=== PATIENT | male | born 1965 | race Caucasian/White ===

== ENCOUNTER 2020-03-19 09:39 | Outpatient (REF) | payer OTHER, SELFPAY | END 2020-03-19 09:40 | disposition home or self-care (01) | LOC: HO.LAB 09:39 | PROVIDERS: Visit Provider Internal Medicine | DX: Z20.828 Contact with and (suspected) exposure to other viral communicable diseases (principal) | CPT/HCPCS: 87635 ==

== ENCOUNTER → 2020-09-23 13:22 | Outpatient (BNVA) | payer OTHER, SELFPAY | PROVIDERS: PCP Internal Medicine; Visit Provider Physician Assistant | DX: S61.311D Laceration without foreign body of left index finger with damage to nail, subsequent encounter (principal); X58.XXXD Exposure to other specified factors, subsequent encounter | CPT/HCPCS: 12001; 90714; 90715; 99203 ==

== ENCOUNTER → 2020-09-25 10:57 | Outpatient (BNVA) | payer OTHER, SELFPAY | PROVIDERS: PCP Internal Medicine; Visit Provider Physician Assistant | DX: S61.211D Laceration without foreign body of left index finger without damage to nail, subsequent encounter (principal); X58.XXXD Exposure to other specified factors, subsequent encounter | CPT/HCPCS: 87071; 87205; 99213 ==

== ENCOUNTER → 2020-09-27 10:03 | Outpatient (BNVA) | payer OTHER, SELFPAY | PROVIDERS: PCP Internal Medicine; Visit Provider Physician Assistant Medical | DX: S61.211D Laceration without foreign body of left index finger without damage to nail, subsequent encounter (principal); X58.XXXD Exposure to other specified factors, subsequent encounter | CPT/HCPCS: 99213 ==

== ENCOUNTER → 2020-10-02 09:55 | Outpatient (BNVA) | payer OTHER, SELFPAY | PROVIDERS: PCP Internal Medicine; Visit Provider Physician Assistant Medical | DX: S61.211D Laceration without foreign body of left index finger without damage to nail, subsequent encounter (principal); X58.XXXD Exposure to other specified factors, subsequent encounter; L03.012 Cellulitis of left finger | CPT/HCPCS: 99213 ==

== ENCOUNTER → 2020-10-10 07:53 | Outpatient (BNVA) | payer OTHER, SELFPAY | PROVIDERS: PCP Internal Medicine; Visit Provider Physician Assistant Medical | DX: S61.221D Laceration with foreign body of left index finger without damage to nail, subsequent encounter (principal); X58.XXXD Exposure to other specified factors, subsequent encounter | CPT/HCPCS: 99213 ==

== ENCOUNTER → 2020-11-14 09:19 | Outpatient (BNVA) | payer OTHER, SELFPAY | PROVIDERS: PCP Internal Medicine; Visit Provider Internal Medicine | DX: S61.311A Laceration without foreign body of left index finger with damage to nail, initial encounter (principal); S62.601A Fracture of unspecified phalanx of left index finger, initial encounter for closed fracture; W31.89XA Contact with other specified machinery, initial encounter | CPT/HCPCS: 73140; 99202 ==

== ENCOUNTER → 2020-11-18 09:11 | Outpatient (BNVA) | payer OTHER, SELFPAY | PROVIDERS: PCP Internal Medicine; Visit Provider Internal Medicine | DX: S61.311A Laceration without foreign body of left index finger with damage to nail, initial encounter (principal); S62.601A Fracture of unspecified phalanx of left index finger, initial encounter for closed fracture; X58.XXXA Exposure to other specified factors, initial encounter | CPT/HCPCS: 99213 ==

== ENCOUNTER → 2020-11-28 12:51 | Outpatient (BNVA) | payer OTHER, SELFPAY | PROVIDERS: PCP Internal Medicine; Visit Provider Internal Medicine | DX: S62.601D Fracture of unspecified phalanx of left index finger, subsequent encounter for fracture with routine healing (principal); X58.XXXD Exposure to other specified factors, subsequent encounter | CPT/HCPCS: 99213 ==

== ENCOUNTER → 2020-12-31 13:18 | Outpatient (BNVA) | payer OTHER, SELFPAY | PROVIDERS: PCP Internal Medicine; Visit Provider Internal Medicine | DX: S62.631D Displaced fracture of distal phalanx of left index finger, subsequent encounter for fracture with routine healing (principal); S64.490D Injury of digital nerve of right index finger, subsequent encounter; W23.0XXD Caught, crushed, jammed, or pinched between moving objects, subsequent encounter | CPT/HCPCS: 99213 ==

== ENCOUNTER → 2021-02-25 13:04 | Outpatient (BNVA) | payer OTHER, SELFPAY | PROVIDERS: PCP Internal Medicine; Visit Provider Internal Medicine | DX: S67.191D Crushing injury of left index finger, subsequent encounter (principal); X58.XXXD Exposure to other specified factors, subsequent encounter | CPT/HCPCS: 99213 ==

== ENCOUNTER → 2023-07-29 11:12 | Outpatient (BNVA) | payer OTHER, SELFPAY | PROVIDERS: PCP Internal Medicine; Visit Provider Physician Assistant | DX: S76.111A Strain of right quadriceps muscle, fascia and tendon, initial encounter (principal); W18.43XA Slipping, tripping and stumbling without falling due to stepping from one level to another, initial encounter | CPT/HCPCS: 73564; 99204 ==

== ENCOUNTER → 2023-08-05 09:33 | Outpatient (BNVA) | payer OTHER, SELFPAY | PROVIDERS: PCP Internal Medicine; Visit Provider Physician Assistant | DX: M25.461 Effusion, right knee (principal) | CPT/HCPCS: 99214 ==

== ENCOUNTER → 2023-08-25 09:56 | Outpatient (BNVA) | payer OTHER, SELFPAY | PROVIDERS: PCP Internal Medicine; Visit Provider Physician Assistant | DX: S83.91XD Sprain of unspecified site of right knee, subsequent encounter (principal); W18.43XD Slipping, tripping and stumbling without falling due to stepping from one level to another, subsequent encounter | CPT/HCPCS: 99213 ==

== ENCOUNTER → 2023-09-15 09:00 | Outpatient (BNVA) | payer OTHER, SELFPAY | PROVIDERS: PCP Internal Medicine; Visit Provider Physician Assistant | DX: M25.561 Pain in right knee (principal) | CPT/HCPCS: 99213 ==

== ENCOUNTER 2023-10-05 19:07 | Outpatient (REF) | payer OTHER, SELFPAY | END 2023-10-05 19:08 | disposition home or self-care (01) | LOC: HO.MRI 19:07 | PROVIDERS: PCP Internal Medicine; Visit Provider Internal Medicine | DX: Z13.89 Encounter for screening for other disorder (principal) ==

== ENCOUNTER 2023-10-07 10:48 | Outpatient (REF) | payer OTHER, SELFPAY ==
--- NOTE | ~2023-10-07 | MR_ITS ---
EXAMINATION: MR KNEE WITHOUT CONTRAST, RIGHT CLINICAL INFORMATION: Right knee pain. Pain superior to the patella. Injury on 07/25/2023. Suprapatellar effusion. Weakness. COMPARISON: Right knee radiographs dated 07/29/2023. Right knee MRI dated 12/01/2013. TECHNIQUE: MRI of the knee without contrast was performed using routine sequences on a high-field scanner. FINDINGS: MENISCI: Medial Meniscus: Significant interval attenuation and irregularity of the medially extruded meniscal body, increased when compared to the prior examination. Oblique tibial articular surface tearing extending through the posterior body and posterior horn, slightly more subtle when compared to the prior examination. The previously seen parameniscal cyst is no longer identified. Lateral Meniscus: Minimal inner margin fraying of the meniscal body, new when compared to the prior examination. LIGAMENTS: Cruciate: Intact Collateral: Intact EXTENSOR MECHANISM: Intact quadriceps and patellar tendons. Normal patellofemoral alignment. ARTICULAR CARTILAGE/BONE: Patellofemoral Compartment: Patellar median ridge articular cartilage fissuring with medial patellar facet signal heterogeneity. Central trochlear signal heterogeneity and partial-thickness loss. Tiny marginal osteophytes. Findings are slightly progressed. Medial Compartment: Diffuse articular cartilage thinning with areas of near full-thickness loss and small marginal osteophytes, slightly progressed. Lateral Compartment: Mild articular cartilage signal heterogeneity with tiny marginal osteophytes, new when compared to the prior examination. JOINT FLUID AND BURSAE: Small joint effusion and trace Garcia's cyst. MR/MR knee RT wo con IMPRESSION: 1. Significant attenuation and irregularity of the medial meniscal body, increased when compared to the prior examination. Oblique tibial articular surface tearing extending through the posterior body and posterior horn, slightly more subtle when compared to the prior examination. The previously seen parameniscal cyst is no longer identified. 2. Minimal inner margin fraying of the lateral meniscal body, new when compared to the prior examination. 3. Mild tricompartmental osteoarthritis, slightly progressed when compared to the prior examination. Small joint effusion and trace Garcia's cyst.
== END 2023-10-07 10:49 | disposition home or self-care (01) ==
LOC: HO.MRI 10:48
PROVIDERS: PCP Internal Medicine; Visit Provider Internal Medicine
DX: M25.461 Effusion, right knee (principal); S83.91XD Sprain of unspecified site of right knee, subsequent encounter
CPT/HCPCS: 73721

== ENCOUNTER 2024-02-03 09:42 | Outpatient (REF) | payer BC, SELFPAY ==
--- NOTE | ~2024-02-03 | FL_ITS ---
EXAMINATION: XR FLUOROSCOPY UPPER GI WITH AIR CLINICAL INFORMATION: Dysphagia COMPARISON: None TECHNIQUE: Fluoroscopic air contrast upper GI examination was performed utilizing standard techniques with thin and thick barium and effervescent granules. Numerous spot images were obtained. FINDINGS: Lateral cine images of the oropharynx and hypopharynx demonstrate normal swallow mechanism with normal epiglottic inversion and soft palate elevation. No tracheal penetration, glottic or subglottic aspiration identified. No nasopharyngeal reflux present. A tiny Zenker's diverticulum is present. There is mild to moderate cricopharyngeal achalasia is present. Dual and single contrast images of the esophagus demonstrate a normal caliber and contour. There is felinization of the mid and distal esophageal mucosa. and mucosal pattern. No evidence of stricture, mass, or ulcerations identified. Esophageal peristalsis was normal. A very small type I hiatal hernia is present. No significant gastroesophageal reflux was seen during the course of the examination and on reflux views. Dual contrast and single contrast images of the stomach demonstrated a normal contour. The areae gastricae have a prominent appearance, suggestive of gastritis. There are multiple tiny foci of contrast pooling in the fundus of the stomach that likely represents small superficial apthous ulcers. No masses are seen. Contrast freely passed into the gastric antrum and duodenal bulb without delay. Single and air-contrast images of the duodenal bulb demonstrate no abnormality. The duodenal sweep has a normal appearance, course, and mucosal fold appearance. The imaged proximal jejunum has a normal fold pattern and caliber. FLUOROSCOPY TIME: 3 minutes 18 seconds Number of Spot Images: 9 Number of Cine: 12 DOSE AREA PRODUCT: 2264 uGy-m2 (microgray-meter squared) FL/FL barium swallow with air IMPRESSION: 1. Tiny Zenker's diverticulum. 2. Mild to moderate cricopharyngeal achalasia. 3. Felinization of the mid and distal esophageal mucosa. This is a benign finding that is typically associated with chronic gastroesophageal reflux. Although reflux was not seen during this examination, suspect at least moderate reflux. 4. Thickened appearance of the areae gastrica. In addition there are multiple tiny foci of contrast pooling in the fundus of the stomach. These findings are suggestive of erosive gastritis. Recommend correlation with EGD. This procedure was performed by Dameon Jacob PA-C, and supervised by Dr. Wright Electronically signed by: Olivier Wright MD 02/04/2024 04:25 PM EDT
== END 2024-02-03 09:43 | disposition home or self-care (01) ==
LOC: HO.XRAY 09:42
PROVIDERS: PCP Internal Medicine; Visit Provider Internal Medicine
DX: R13.14 Dysphagia, pharyngoesophageal phase (principal)
CPT/HCPCS: 74221

== ENCOUNTER → 2024-02-03 09:47 | Outpatient (BNV) | payer BC, SELFPAY | PROVIDERS: PCP Internal Medicine; Visit Provider Radiology Diagnostic Radiology | DX: R13.10 Dysphagia, unspecified (principal) | CPT/HCPCS: 74246 ==

== ENCOUNTER 2024-02-24 13:17 | Day surgery (SDC) | payer BC, SELFPAY ==
--- NOTE | 2024-02-22 14:49 | P.CONAN_ITS ---
Documented by User: Denise Soria NP 02/22/24 14:50 HPI - Anesthesia Eval Consult details Narrative: 59yo M for Upper Endoscopy with Balloon Dilitation [facility] Past Medical History Medical History Stroke Mitral valve prolapse Social History Social History Are you a primary healthcare technician to a significant other at home: No Do you presently have visiting nurse or other home services: No Patient Tobacco Use Status: Never used Tobacco Use of substances other than those prescribed or required for medical reasons: No Are you DNR?: No Advance Directives: No Advance Directives Information Provided: Yes Meds Allergies Allergy/AdvReac Type Severity Reaction Status Date / Time aspirin [Aspirin] Allergy Severe ANAPHYLAXIS Unverified 02/08/20 14:44 Home Medications ?Medication ?Instructions ?Recorded ?Confirmed ?Last Taken ?Type omeprazole 20 mg tablet,delayed 20 mg PO QAM 02/23/24 02/24/24 Unknown History release Assessment and Plan Assessment Anesthesia Assessment: Chart Reviewed Documented by User: Roma Evangelista MD 02/24/24 14:19 [facility] Past Medical History Medical History Stroke Mitral valve prolapse Surgical History History of Problems with Anesthesia: No Social History Social History Are you a primary healthcare technician to a significant other at home: No Do you presently have visiting nurse or other home services: No Patient Tobacco Use Status: Never used Tobacco Use of substances other than those prescribed or required for medical reasons: No Are you DNR?: No Advance Directives: No Advance Directives Information Provided: Yes Meds Allergies Allergy/AdvReac Type Severity Reaction Status Date / Time aspirin [Aspirin] Allergy Severe ANAPHYLAXIS Unverified 02/08/20 14:44 Home Medications ?Medication ?Instructions ?Recorded ?Confirmed ?Last Taken ?Type omeprazole 20 mg tablet,delayed 20 mg PO QAM 02/23/24 02/24/24 Unknown History release Exam Airway Mallampati Class: III TM Dist: >3cm Neck ROM: Full Loose/Missing/Broken Teeth: No Heart: RRR Lungs: CTA Assessment and Plan Assessment Anesthesia Assessment: Anesthesia Plan Discussed Final Anesthetic Review History of Problems with Anesthesia: No NPO: Yes ASA Class: III Final Preanesthetic Review: Meds/Allgs Chart Reviewed, Consent Obtained/Reviewed and Anes Risks/Benef Reviewed Patient Risk: Intermediate Procedure Risk: Intermediate Anesthetic Plan Anesthetic Plan: MAC: Disposition: Standard PACU
[2024-02-24 13:33] VITALS: BMI 33.9
[2024-02-24 13:40] VITALS: BP 117/91; PULSE 74; RESP 16; TEMP 36.7; O2SAT 95
[2024-02-24 15:09] VITALS: BP 132/85; PULSE 96; RESP 12; TEMP 36.1; O2SAT 94
--- NOTE | 2024-02-24 15:11 | P.BOP_ITS ---
Brief Operative Note Date of Service: 02/24/24 Pre-op diagnosis: Dysphagia, GERD, Hx of EoE Post-op diagnosis: other (Hiatal hernia, Distal esophageal stricture) Procedure: EGD with biopsies, and balloon dilation with an 18mm to 19mm to 20mm balloon Surgeon: Vitor Peters MD Anesthesia: MAC Was an Blood Bank Supervisor used for this Procedure?: No Estimated blood loss (mL): 2.0 Pathology: other (A. EG Junction at 38cm B. Esophagus 20-25cm) Condition: stable Disposition: PACU
[2024-02-24 15:24] VITALS: BP 141/89; PULSE 82; RESP 16; O2SAT 98
[2024-02-24 15:39] VITALS: BP 124/79; PULSE 78; RESP 18; TEMP 36.1; O2SAT 98
--- NOTE | 2024-02-25 10:23 | OP_ITS ---
DATE OF SERVICE: 02/24/2024 SURGEON: Vitor Peters MD INDICATIONS: The patient presents for evaluation of gastroesophageal reflux, dysphagia, and history of eosinophilic esophagitis. Full consent has been obtained from him for this, including risks of bleeding and perforation. PREOPERATIVE DIAGNOSIS: POSTOPERATIVE DIAGNOSIS: PROCEDURE PERFORMED: Esophagogastroduodenoscopy with balloon dilation of gastroesophageal junction, and biopsies. ESTIMATED BLOOD LOSS: COMPLICATIONS: ANESTHESIA: Monitored anesthesia care. ASSISTANTS: SPECIMENS: PREOPERATIVE DIAGNOSES: Dysphagia, gastroesophageal reflux, history of eosinophilic esophagitis. POSTOPERATIVE DIAGNOSES: Dysphagia, gastroesophageal reflux, history of eosinophilic esophagitis, hiatal hernia, distal esophageal stricture, subtle proximal esophageal rings, status post balloon dilation of gastroesophageal junction, small hiatal hernia. DESCRIPTION OF PROCEDURE: The patient was placed in the left lateral decubitus position. The Olympus video gastroscope was passed in the posterior oropharynx and upper esophagus under direct vision. The scope was passed slowly into the distal esophagus. The gastroesophageal junction appeared at 38 cm. This area appeared notable for what appeared to be a circumferential fibrotic ring or stricture, but without any significant obstruction as the scope easily passed this. There was no ulceration or mass. There was no obvious evidence of Callaway esophagus. The scope entered the stomach and there was a small hiatal hernia. The scope was advanced to pylorus and the duodenum was cannulated to the descending portion. The duodenum including the bulb appeared normal without mass or ulceration. The scope was withdrawn back to the stomach. The gastric antrum and body appeared normal with good peristalsis. The scope was retroflexed, visualizing the proximal stomach carefully, which appeared normal, without any sign of mass or ulceration. The scope was straightened and withdrawn back to the esophagus. I did use a [employer] incremental balloon to dilate the gastroesophageal junction from 18 mm to 19 mm to 20 mm at the recommended pressure for between 30 and 60 seconds each. Post dilation, there was heme noted and some disruption of the distal stricture. I then obtained biopsies at the EG junction at 38 cm. The proximal esophagus was notable for some subtle esophageal rings, which almost disappeared with insufflation of air. Multiple biopsies were obtained between 20 and 25 cm. I did not visualize any other mucosal abnormalities in the esophagus. The scope was withdrawn from the patient. He tolerated the procedure well and was returned to the recovery area in stable condition. IMPRESSION: 1. Distal esophageal stricture, status post balloon dilation. 2. Hiatal hernia, gastroesophageal reflux. 3. History of eosinophilic esophagitis. PLAN: The results of the biopsies will be checked. He is going to start his omeprazole tomorrow morning, for which he has a prescription already at home. I do feel that part of the trouble swallowing is from some reflux and spasm. However, if he does not respond to this and the biopsies again show eosinophilic esophagitis, I would then plan to start him on some oral budesonide. He was advised not to use any aspirin or NSAIDs for 1 week. He will see me in followup. MD SHAQUILLE Up/MATTHEW / [phone] MTDJennifer
== END 2024-02-24 16:07 | disposition home or self-care (01) ==
PROVIDERS: PCP Internal Medicine; Visit Provider Internal Medicine
PROC: (CPT 43249; principal; 2024-02-24 14:30)
DX: R13.14 Dysphagia, pharyngoesophageal phase (principal); K22.2 Esophageal obstruction; K20.0 Eosinophilic esophagitis; K21.9 Gastro-esophageal reflux disease without esophagitis; K44.9 Diaphragmatic hernia without obstruction or gangrene; Z86.73 Personal history of transient ischemic attack (TIA), and cerebral infarction without residual deficits; Z98.890 Other specified postprocedural states
CPT/HCPCS: 43249; 43239; 88305; C1726; J2003; J2250; J2704

== ENCOUNTER 2024-10-11 15:46 | Outpatient (REF) | payer BC, SELFPAY ==
--- NOTE | ~2024-10-11 | XR_ITS ---
EXAMINATION: XR CHEST 2 VIEWS HISTORY: ACUTE COUGH COMPARISON: Comparison is made with the prior examination dated 01/21/2018. FINDINGS: PA and lateral views of the chest are submitted. There is patchy airspace opacity in the right middle and lower lobes, consistent with pneumonia. There is linear subsegmental atelectasis at the left lung base. There is a probable tiny right pleural effusion. There is no pneumothorax or pulmonary vascular congestion. The heart is normal in size. There is degenerative disc disease of the spine. XR/XR chest 2V IMPRESSION: Right lower lobe pneumonia with an associated small pleural effusion. Left basilar subsegmental atelectasis. Follow-up is recommended to document resolution. Electronically signed by: Vitor Summers MD 10/12/2024 07:01 AM EDT
--- OUTSIDE RECORDS SUMMARY | 2024-10-11 15:50 | XMS_ITS ---
Author Organization [facility] Address [address] [place] [address] Care Team Providers Care Boy'S Adviser Name Role Phone Edmund Aleman MD Primary Care Provider Vitor Singh [phone] REASON FOR VISIT schedule f/u with Dr. Peters no [place] Encounters Encounter Location Date Provider Diagnosis [facility] [address] [place] [address] 02/28/2024 Vitor Peters Plan Of Treatment Next Appt Details Provider Name:Vitor Peters , 02/16/2025 01:00:00 PM, [address] [place] [address], [address], [place], [address], Progress Notes * RAKESH ERAZOWDOB:1965 (59 yo M)Acc No.[id number]:02/28/2024 Patient:?BHAVANI ERAZO :1965???Age:59 Y???Sex:Male Address:[address] [place], [place] [address] [address] * true * Date:? Generated for Printi ng/Fajessieg/eTransmitting on:?10/11/2024 03:49 PM EDT
--- OUTSIDE RECORDS SUMMARY | 2024-10-11 15:50 | XMS_ITS ---
Author Organization [facility] Address [address] [place] [address] Care Team Providers Care Retail Client Manager Name Role Phone Edmund Aleman MD Primary Care Provider Vitor Singh Unavailable [phone] REASON FOR VISIT pharyngoesophgaeal dysphagia, eosinophilic esophagitis Problems Problem Type SNOMED Code ICD Code Onset Dates Problem Status W/U Status Risk Notes Problem Esophageal stricture (36441464) Esophageal stricture (K22.2) Active confirmed Problem Gastro-esophag eal reflux disease without esophagitis (916030987) Gastro-esophageal reflux disease without esophagitis (K21.9) Active confirmed Problem Pharyngeal dysphagia (9931850714410 5) Dysphagia, pharyngoesophageal phase (R13.14) Active confirmed Encounters Encounter Location Date Provider Diagnosis [facility] [address] [place] [phone] 02/24/2024 Vitor Peters Esophageal stricture K22.2 ; Gastro-esophageal reflux disease without esophagitis K21.9 ; Dysphagia, pharyngoesophageal phase R13.14 and Hiatal hernia K44.9 Assessments Encounter Date Diagnosis (ICD Code) Assessment Notes Treatment Notes Treatment Clinical Notes Section Notes 02/24/2024 Esophageal stricture (ICD-10 - K22.2) 02/24/2024 Gastro-esophageal reflux disease without esophagitis (ICD-10 - K21.9) 02/24/2024 Dysphagia, pharyngoesophageal phase (ICD-10 - R13.14) 02/24/2024 Hiatal hernia (ICD-1 0 - K44.9) Plan Of Treatment Next Appt Details Provider Name:Vitor Garo Peters , 02/16/2025 01:00:00 PM, [address], [address], [place], [address], Progress Notes * RAKESH ERAZOWDOB:1965 (59 yo M)Acc No.[id number]:02/24/2024 EGD/MAC Patient:?BHAVANI ERAZO Provider:?Vitor Peters MD :1965???Age:59 Y???Sex:Male Serge e:02/24/2024 Address:[address] [place], [place] [id number] Pcp:Edmund Aleman MD Subjective: * Chief Complaints: * ???1. Pharyngoesophgaeal dys phagia, eosinophilic esophagitis. * Medical History:? Objective: * Vitals:? Assessment: * Assessment: 1.?Esophageal stricture - K2 2.2 (Primary)???2.?Gastro-esophageal reflux disease without esophagitis - K21.9???3.?Dysphagia, pharyngoesophageal phase - R13.14???4.?Hiatal hernia - K44.9??? Plan: * Treatment: * Procedure Codes:?14385 ESOPH ENDOSCOPY, DILATION, 93593 UPPER GI ENDOSCOPY, BIOPSY, Modifiers: 59 * * The named appointment provid er may or may not be the originator of this progress note, and it is not deemed complete until electronically signed by the appointment provider. Sign off status: Pending * Provider:?Vitor Peters MD Date:? 024 Generated for Marco magdaleno/Chun/eTransmitting on:?10/11/2024 03:50 PM EDT
--- OUTSIDE RECORDS SUMMARY | 2024-10-11 15:50 | XMS_ITS ---
Author Organization [facility] Address [address] [place] [address] Care Team Providers Care Show Dog Trainer Name Role Phone Edmund Aleman MD Primary Care Provider Vitor Singh Unavailable [phone] Allergies Allergen (clinical drug ingredient) Drug/Non Drug Allergy documented on EMR Reaction Allergy Type Onset Date Status Aspir-81 Unknown Drug Allergy Active REASON FOR VISIT Patient presents today for pharngoesophageal dysphagia Medications Medication SIG (Take, Route, Fr equency, Duration) Notes Start Date End Date Status Omeprazole 40 MG 1 capsule Orally Onc e a day every morning for 30 day(s) 06/27/2024 Acti ve Omeprazole 20 MG 1 tablet Orally Once every morning for 30 days 04/13/2018 Not-Taking Social History Tobacco Use: Social History Observation Description Date Details (start date - stop date) Never Smoker NA - NA Tobacco Use/Smoking Question Answer Notes Patient is a nonsmoker Alcohol Screen Question Answer Notes Did you have a drink contain ing alcohol in the past year? Yes How often did you have a dri nk containing alcohol in the past year? 2 to 3 times a week (3 points) How many drinks did you have on a typical day when you were drinking in the past year? 5 or 6 drinks (2 points) How often did you have 6 or more drinks on one occasion in the past year? Monthly (2 points) Points 7 Interpretation Positive Section Notes: Nonsmoker; occ alcohol Problems Problem Type SNOMED Code ICD Code Onset Dates Problem Status W/U Status Risk Notes Problem 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) Active confirmed Vital Signs Blood pressure systolic 00 mm Hg 06/27/19 25 Blood pressure diastolic 00 mm Hg 025 Height 72 in 06/27/2024 Weight 243 lbs 06/27/2024 BMI 32.95 kg/m2 06/27/2024 Encounters Encounter Location Date Provider Diagnosis [facility] [address] [place] [address] 06/27/2024 Vitor Peters Pharyngoesophageal dysphagia R13.14 ; Eosinophilic esophagitis K20.0 ; Gastro-esophageal reflux disease without esophagitis K21.9 ; Callaway''s esophagus without dysplasia K22.70 and Esophageal stricture K22.2 Assessments Encounter Date Diagnosis (ICD Code) Assessment Notes Treatment Notes Treatment Clinical Notes Section Notes 06/27/2024 Pharyngoesophageal dysphagia (ICD-10 - R13.14) I want you to start using the Omeprazole every morning. Call me in 1 month to let me know how you are doing. If the swallowing remains a problem I will start you on Budesonide. Overall, Roman appears well. We did review the findings on his upper endoscopy in detail. I advised him that I do feel his reflux is playing a role in his symptoms and I stressed to him that I want him to use the omeprazole 40 mg daily and will send him a new prescription for that. However, if things do not improve in regard to his swallowing within one month I advised him to call me and I would then start him on a trial of budesonide to specifically treat the eosinophilic esophagitis. 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 We did review the finding of the small area of Callaway's esophagus and I advised him of the need for a followup endoscopy in 3 years for surveillance given the theoretical increased risk of esophageal cancer. We also reviewed that he'll be due for a followup screening colonoscopy in 2028 given the negative exam in 2018. I will plan to see him in the Fall for a followup visit, but again advised him to call me in one month to let me know how he is doing in regard to the swallowing. I advised him of the importance of compliance with the medication and my instructions in regard to the swallowing. I gave him written instructions in this regard as well. Roman was comfortable with this plan. Thank you again for allowing me to participate in Roman's care. I shall continue to keep you advised of his progress. 06/27/2024 Eosinophilic esophagitis (ICD-10 - K20.0) Overall, Roman appears well. We did review the findings on his upper endoscopy in detail. I advised him that I do feel his reflux is playing a role in his symptoms and I stressed to him that I want him to use the omeprazole 40 mg daily and will send him a new prescription for that. However, if things do not improve in regard to his swallowing within one month I advised him to call me and I would then start him on a trial of budesonide to specifically treat the eosinophilic esophagitis. 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 We did review the finding of the small area of Callaway's esophagus and I advised him of the need for a followup endoscopy in 3 years for surveillance given the theoretical increased risk of esophageal cancer. We also reviewed that he'll be due for a followup screening colonoscopy in 2028 given the negative exam in 2018. I will plan to see him in the Fall for a followup visit, but again advised him to call me in one month to let me know how he is doing in regard to the swallowing. I advised him of the importance of compliance with the medication and my instructions in regard to the swallowing. I gave him written instructions in this regard as well. Roman was comfortable with this plan. Thank you again for allowing me to participate in Roman's care. I shall continue to keep you advised of his progress. 06/27/2024 Gastro-esophageal reflux disease without esophagitis (ICD-10 - K21.9) Overall, Roman appears well. We did review the findings on his upper endoscopy in detail. I advised him that I do feel his reflux is playing a role in his symptoms and I stressed to him that I want him to use the omeprazole 40 mg daily and will send him a new prescription for that. However, if things do not improve in regard to his swallowing within one month I advised him to call me and I would then start him on a trial of budesonide to specifically treat the eosinophilic esophagitis. 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 We did review the finding of the small area of Callaway's esophagus and I advised him of the need for a followup endoscopy in 3 years for surveillance given the theoretical increased risk of esophageal cancer. We also reviewed that he'll be due for a followup screening colonoscopy in 2028 given the negative exam in 2018. I will plan to see him in the Fall for a followup visit, but again advised him to call me in one month to let me know how he is doing in regard to the swallowing. I advised him of the importance of compliance with the medication and my instructions in regard to the swallowing. I gave him written instructions in this regard as well. Roman was comfortable with this plan. Thank you again for allowing me to participate in Roman's care. I shall continue to keep you advised of his progress. 06/27/2024 Callaway''s esophagus without dysplasia (ICD-10 - K22.70) Overall, Roman appears well. We did review the findings on his upper endoscopy in detail. I advised him that I do feel his reflux is playing a role in his symptoms and I stressed to him that I want him to use the omeprazole 40 mg daily and will send him a new prescription for that. However, if things do not improve in regard to his swallowing within one month I advised him to call me and I would then start him on a trial of budesonide to specifically treat the eosinophilic esophagitis. If things improve significantly on just the omeprazole then we would continue that detention and perhaps eventually decrease it back to 20 mg daily. We did review the finding of the small area of Callaway's esophagus and I advised him of the need for a followup endoscopy in 3 years for surveillance given the theoretical increased risk of esophageal cancer. We also reviewed that he'll be due for a followup screening colonoscopy in 2028 given the negative exam in 2019. I will plan to see him in the Fall for a followup visit, but again advised him to call me in one month to let me know how he is doing in regard to the swallowing. I advised him of the importance of compliance with the medication and my instructions in regard to the swallowing. I gave him written instructions in this regard as well. Roman was comfortable with this plan. Thank you again for allowing me to participate in Roman's care. I shall continue to keep you advised of his progress. 06/27/2024 Esophageal stricture (ICD-10 - K22.2) Overall, Roman appears well. We did review the findings on his upper endoscopy in detail. I advised him that I do feel his reflux is playing a role in his symptoms and I stressed to him that I want him to use the omeprazole 40 mg daily and will send him a new prescription for that. However, if things do not improve in regard to his swallowing within one month I advised him to call me and I would then start him on a trial of budesonide to specifically treat the eosinophilic esophagitis. 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 We did review the finding of the small area of Callaway's esophagus and I advised him of the need for a followup endoscopy in 3 years for surveillance given the theoretical increased risk of esophageal cancer. We also reviewed that he'll be due for a followup screening colonoscopy in 2028 given the negative exam in 2018. I will plan to see him in the Fall for a followup visit, but again advised him to call me in one month to let me know how he is doing in regard to the swallowing. I advised him of the importance of compliance with the medication and my instructions in regard to the swallowing. I gave him written instructions in this regard as well. Roman was comfortable with this plan. Thank you again for allowing me to participate in Roman's care. I shall continue to keep you advised of his progress. Plan Of Treatment Medication Medication Name Sig Start Date Stop Date Notes Omeprazole 40 MG 1 capsule Orally Onc e a day every morning for 30 day(s) 06/27/2024 Treatment Notes Assessment Notes Pharyngoesophageal dysphagia I want you to start using the Omeprazole every morning. Call me in 1 month to let me know how you are doing. If the swallowing remains a problem I will start you on Budesonide. Next Appt Details Follow Up: 2024, Tana n: Provider Name:Vitor Peters , 02/16/2025 01:00:00 PM, [address], [address], [place], [address], Progress Notes * ANJEL ERAZOOB:1965 (59 yo M)Acc No.[id number]:06/27/2024 Progress Notes Patient:?BHAVANI ERAZO Provider:?Vitor Peters MD :1965???Age:59 Y???Sex:Male Serge e:06/27/2024 Address:[address] [place] [address] [id number] Pcp:Edmund Aleman MD Subjective: * Chief Complaints: * ???Patient presents today fo r pharngoesophageal dysphagia * HPI: ???incontinence:? I saw Roman in followup today to his history of gastroesophageal reflux, recent finding of Callaway's esophagus, history of eosinophilic esophagitis, and dysphagia. ?I last saw Roman in February of 2024, at which time he underwent an upper endoscopy and balloon dilation. The upper endoscopy revealed a small hiatal hernia, changes of gastroesophageal reflux, biopsies revealing a small area of Callaway's esophagus without dysplasia, and proximal esophageal biopsies again consistent with eosinophilic esophagitis. There was a distal esophageal nonobstructing stricture which was dilated with a large balloon. There were some subtle and nonobstructing proximal esophageal rings in relation to the eosinophilic esophagitis which were not dilated. Subsequent to the procedure I did start him on omeprazole 20 mg daily but again he has remained fairly noncompliant with that by his description. At best, he uses it about twice a week. He does not have much in the way of heartburn but does complain of ongoing issues with some dysphagia localized to the sternal notch area on a fairly regular basis if he is not careful with his eating. He does occasionally have trouble swallowing water during those times. He rarely has to regurgitate. He enjoys a good appetite and denies any abdominal pain. He has lost some weight on an intentional diet. ?He denies any change in bowel habits or any signs of bleeding. He francisco any abdominal pain or jaundice. * ROS:?General/Constitutional:?Change in appetite?denies.?Chills?denies.?Fatigue?denies.?Ophthalmologic:?Comments?all negative.?ENT:?Comments?snores.?Respiratory:?hemoptysis?denies.?Cough??admits.?Cardiovascular:?Chest pain?denies.?Orthopnea?denies.?Gastrointestinal:?Comments?See HPI for details.?Genitourinary:?Hematuria?denies.?Dysuria?denies.?Musculoskeletal:?Painful joints?denies.?Weakness?denies.?Skin:?Itching?denies.?Rash?denies.?Neurologic:?Headache?denies.?Seizures?denies.?Psychiatric:?Comments?all negative.? * Medical History:? * Surgical History:?Knee right 2012Hernia umbilical 2010Lower Back 2006Deviated septum Uvuloplasty surgery Knee - left 2018 * Hospitalization/Major Diagno stic Procedure:?No Hospitalization History. * Family History:?Father: dece ased, diagnosed with Heart disease.?Mother: , diagnosed with Heart disease.?Siblings: alive, sister type 2, diagnosed with Diabetes.? No known hx of colon cancer. * Social History:?Tobacco Use:?Tobacco Use/Smoking?Patient is a?nonsmoker.?Drugs/Alcohol:?Alcohol Screen?Did you have a drink containing alcohol in the past year??Yes,?How often did you have a drink containing alcohol in the past year??2 to 3 times a week (3 points),?How many drinks did you have on a typical day when you were drinking in the past year??5 or 6 drinks (2 points),?How often did you have 6 or more drinks on one occasion in the past year??Monthly (2 points),?Points?7,?Interpretation?Positive.?Miscellaneous:?Marital status: engaged. 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 ???Nonsmoker; occ alcohol. * Medications:?Not-Taking/PRNO meprazole 20 MG Tablet Delayed Release 1 tablet Orally Once every morningMedication List reviewed and reconciled with the patientNot-Taking/PRN Omeprazole 20 MG Tablet Delayed Release 1 tablet Orally Once every morningMedication List reviewed and reconciled with the patient * Allergies:?Aspir-81yes[Aller gies Verified] Objective: * Vitals:?Wt: 243 lbs, Ht: 72 in, BMI:32.95 Index, BP: 00/00 mm Hg. * Examination: ???General Examination: ?GENERAL APPEARANCE:?pleasant, well nourished, well developed, in no acute distress.?EYES:?sclera non-icteric.?ORAL CAVITY:?mucosa moist.?NECK/THYROID:?no cervical lymphadenopathy, neck supple.?SKIN:?nonjaundiced, no spider angiomata.?HEART:?S1, S2 normal.?LUNGS:?clear to auscultation bilaterally.?ABDOMEN:?normal bowel sounds, no guarding or rigidity, no guarding or rigidity, no masses palpable, soft, nontender, nondistended.?EXTREMITIES:?no edema.?NEUROLOGIC:?alert and oriented.? Assessment: * Assessment: 1.?Pharyngoesophageal dyspha luis manuel - R13.14 (Primary)?2.?Eosinophilic esophagitis - K20.0?3.?Gastro-esophageal reflux disease without esophagitis - K21.9?4.?Callaway''s esophagus without dysplasia - K22.70?5.?Esophageal stricture - K22.2? Overall, Roman appears well. We did review the findings on his upper endoscopy in detail. I advised him that I do feel his reflux is playing a role in his symptoms and I stressed to him that I want him to use the omeprazole 40 mg daily and will send him a new prescription for that. However, if things do not improve in regard to his swallowing within one month I advised him to call me and I would then start him on a trial of budesonide to specifically treat the eosinophilic esophagitis. 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 We did review the finding of the small area of Callaway's esophagus and I advised him of the need for a followup endoscopy in 3 years for surveillance given the theoretical increased risk of esophageal cancer. We also reviewed that he'll be due for a followup screening colonoscopy in 2028 given the negative exam in 2018. I will plan to see him in the Fall for a followup visit, but again advised him to call me in one month to let me know how he is doing in regard to the swallowing. I advised him of the importance of compliance with the medication and my instructions in regard to the swallowing. I gave him written instructions in this regard as well. Roman was comfortable with this plan. Thank you again for allowing me to participate in Roman's care. I shall continue to keep you advised of his progress. Plan: * Treatment: 2.?Gastro-esophageal reflux disease without esophagitis? Start Omeprazole Capsule Delayed Release, 40 MG, 1 capsule, Orally, Once a day every morning, 30 day(s), 30, Refills 11.?? * Procedure Codes:?3017F COLOR ECTAL CA SCREEN DOC [id number] TOBACCO [id number] BP SCR NOT PRFRM REC REASON NOS * Preventive Medicine:? ??Counseling:?Care goal follow-up plan:?Above Normal BMI Follow-up?Giving encouragement to exercise,?BMI management provided?Yes.? * Follow Up:?2024 * * Sign off status: Completed true * Provider:?Vitor Peters MD Date:? 025 Generated for Marco magdaleno/Chun/Lamontitting on:?10/11/2024 03:50 PM EDT History and Physical Notes * HPI (History of Present Illness) Category Sub-Category Detail Notes Category Not es incontinence I saw Roman in followup today to his history of gastroesophageal reflux, recent finding of Callaway's esophagus, history of eosinophilic esophagitis, and dysphagia. I last saw Roman in February of 2024, at which time he underwent an upper endoscopy and balloon dilation. The upper endoscopy revealed a small hiatal hernia, changes of gastroesophageal reflux, biopsies revealing a small area of Callaway's esophagus without dysplasia, and proximal esophageal biopsies again consistent with eosinophilic esophagitis. There was a distal esophageal nonobstructing stricture which was dilated with a large balloon. There were some subtle and nonobstructing proximal esophageal rings in relation to the eosinophilic esophagitis which were not dilated. Subsequent to the procedure I did start him on omeprazole 20 mg daily but again he has remained fairly noncompliant with that by his description. At best, he uses it about twice a week. He does not have much in the way of heartburn but does complain of ongoing issues with some dysphagia localized to the sternal notch area on a fairly regular basis if he is not careful with his eating. He does occasionally have trouble swallowing water during those times. He rarely has to regurgitate. He enjoys a good appetite and denies any abdominal pain. He has lost some weight on an intentional diet. He denies any change in bowel habits or any signs of bleeding. He francisco any abdominal pain or jaundice. Examination Category Sub-Category Detail Notes Category Not es General Examination GENERAL APPEARANCE: pleasant , well nourished, well developed, in no acute distress HEAD: EYES: sclera non-icteric EARS: NOSE: THROAT: NECK/THYROID: no cervical lymphade nopathy, neck supple HEART: S1, S2 normal CHEST: LUNGS: clear to auscultatio n bilaterally ABDOMEN: normal bowel sounds, no guarding or rigidity, no guarding or rigidity, no masses palpable, soft, nontender, nondistended NEUROLOGIC: alert and oriented SKIN: nonjaundiced, no spi leroy angiomata EXTREMITIES: no edema PERIPHERAL PULSES: BACK: BREASTS: MUSCULOSKELETAL: MALE GENITOURINARY: LYMPH NODES: RECTAL EXAM: FEMALE GENITOURINARY: ORAL CAVITY: mucosa moist
--- OUTSIDE RECORDS SUMMARY | 2024-10-11 15:50 | XMS_ITS | Patient Health Record ---
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 Name Role Phone Edmund Aleman MD Primary Care Provider Vitor Singh [phone] Allergies Allergen (clinical drug ingredient) Drug/Non Drug Allergy documented on EMR Reaction Allergy Type Onset Date Status Aspir-81 Unknown Drug Allergy Active Results Component Value Reference Range Notes Pathology Reviewed date:06/27/2024 03:49:48 PM Interpretation: Performing Lab:[facility], [address] [place] [id number] Notes/Report: Name: Bhavani Armijo Age/Sex: 59/M : 1965 Unit#: [id number] Attend Dr: Vitor Peters MD Re02/24/24 Status : [facility] Location: [facility] Disch: SPEC : [id number] RECD : 02/25/24 STATUS: KAHTRYN LEWIS NUM: [id number] MATILDA: 02/24/241454 [facility] DR: Vitor Peters MD ENTERED: 02/25/24 51 SP TYPE: Surgical OTHR DR: Edmund Aleman MD ORDERED: HE Stain/6, Gross Micro L4/2 Diagnosis A. Esophagogastric j unction, at 38 cm, biopsy: Squamous mucosa with hyperplasia, spongiosis, and intr aepithelial neutrophils and eosinophils (up to 8 per high-power field) and columnar mucosa with moderate chronic active inflammation consistent with esophagitis, and foc al intestinal metaplasia; negative for dysplasia (see comment). B. Esophagus, at 20- 25 cm, biopsy: Squamous mucosa with hyperplasia and intraepithelial eosinophils (up to 2 0 per high-power field) compatible with eosinophilic esophagitis; no columnar mucosa present. Comment: (A): These findings are consistent with Callaway?s esophagus if the biopsies were taken from above the anato zoya gastroesophageal junction. Clinical and endoscopic correlation is advised. Clinical History Pre-Op Dx: Eosinophi lic esophagitis, dysphagia Post-Op Dx: Hiatal h ernia and reflux Microscopic Description Microscopic sections reviewed. Material Received A. EG junction at 38 cm B. Esophagus bx 20-25, r/o EOE Gross Description A. Received in forma seven are 2 giang 2-3 mm soft tissue fragments, totally submitted in cassette A1. B. Received in forma seven are 5 giang 2-3 mm soft tissue fragments, totally submitted in cassette B1. (DANIELLE) In formalin time: im mediate; total time in formalin: 24-28 hours. CONTINUED ON NEXT PAGE Name: Bhavani Armijo Age/Sex: 59/M : 1965 Unit#: [id number] Attend Dr: Vitor Peters MD Re02/24/24 Status : [facility] Location: [facility] Disch: SPEC : [id number] RECD : 02/25/24 STATUS: KATHRYN LEWIS NUM: [id number] MATILDA: 02/24/244 [facility] DR: Vitor Peters MD ENTERED: 02/25/24 SP TYPE: Surgical OTHR DR: Edmund Aleman MD ORDERED: HE Stain/6, Gross Micro L4/2 Copies To: Edmund Aleman MD [facility] [address] [id number] Vitor Peters MD [facility] [address] [place] [id number] Signed (si gnature on file) hSannon Saul 02/28/24 1413 END OF REPORT Reason For Referral Referring Provider First Name Edmund Referring Provider Last Name Ash Referring Provider Speciality Internal M edicine Referred Organization [facility] Referred Provider Vitor Peters Referred Address [address] [place] [address],[place], [place],[address], Referred Provider Specialty Gastroentero logy General Notes Amanda Hill 024 01:57:23 PM EDT > Referral Priority Routine Medications Medication SIG (Take, Route, Fr equency, Duration) Notes Start Date End Date Status Omeprazole 40 MG 1 capsule Orally Onc e a day every morning for 30 day(s) 06/27/2024 Acti ve Omeprazole 20 MG 1 tablet Orally Once every morning for 30 days 04/13/2018 Not-Taking Immunizations Vaccine Route Administration Date Status Comme nts Influenza Unknown 04/13/2018 Refused Influenza Unknown 10/25/2020 Refused Social History Tobacco Use: Social History Observation [...] Points 7 Interpretation Positive Section Notes: Nonsmoker; no sig alcohol Nonsmoker; no sig alcohol Nonsmoker; occ alcohol Nonsmoker; occ alcohol Nonsmoker; occ alcohol Nonsmoker; occ alcohol Problems Problem Type SNOMED Code ICD Code Onset Dates Problem Status W/U Status Risk Notes Problem Gastro-esophag eal reflux disease without esophagitis (613274443) Gastro-esophageal reflux disease without esophagitis (K21.9) Active confirmed Problem 285104630 Encounter for screening for malignant neoplasm of colon (Z12.11) Active confirmed Problem 041717860 Eosinophilic esophagitis (K20.0) Active confirmed Problem 31506359 Cough (R05) Active confirmed Problem Pharyngeal dysphagia (9900556976344 5) Dysphagia, pharyngoesophageal phase (R13.14) Active confirmed Problem Esophageal stricture (21086458) Esophageal stricture (K22.2) Active confirmed Problem 79453726 Pharyngoesophage al dysphagia (R13.14) Active confirmed Problem 10859080 Dysphagia, unspecified type (R13.10) Active confirmed Problem 45544772 Esophageal dysph agia (R13.10) Active confirmed Problem Callaway's esophagus (564411658) 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) Active confirmed Vital Signs Blood pressure diastolic 00 mm Hg 06/27/2024 Height 72 in 06/27/2024 Blood pressure systolic 00 mm Hg 06/27/2024 Weight 243 lbs 06/27/2024 BMI 32.95 kg/m2 06/27/2024 Encounters Encounter Location Date Provider Diagnosis [facility] Outpatient [address] [place] [id number] 02/24/2024 Vitor Peters Esophageal stricture K22.2 ; Gastro-esophageal reflux disease without esophagitis K21.9 ; Dysphagia, pharyngoesophageal phase R13.14 and Hiatal hernia K44.9 [facility] [address] [place] [phone] 02/22/2024 Vitor Peters Pharyngoesophageal dysphagia R13.14 ; Encounter for screening for malignant neoplasm of colon Z12.11 and Eosinophilic esophagitis K20.0 [facility] [address] [place] [phone] 06/27/2024 Vitor Peetrs Pharyngoesophageal dysphagia R13.14 ; Eosinophilic esophagitis K20.0 ; Gastro-esophageal reflux disease without esophagitis K21.9 ; Callaway''s esophagus without dysplasia K22.70 and Esophageal stricture K22.2 [facility] [address] [place] [phone] 02/10/2024 Vitor Peters Pharyngoesophageal dysphagia R13.14 [facility] [address] [place] [phone] 02/23/2024 Vitor Peters [facility] [address] [place] [phone] 02/28/2024 Vitor Peters Assessments Encounter Date Diagnosis (ICD Code) Assessment Notes Treatment Notes Treatment Clinical Notes Section Notes 02/24/2024 Gastro-esophageal reflux disease without esophagitis (ICD-10 - K21.9) 02/24/2024 Esophageal stricture (ICD-10 - K22.2) 02/22/2024 Encounter for screening for malignant neoplasm of colon (ICD-10 - Z12.11) Overall, Roman appears quite well. His current symptoms could certainly be related to the underlying eosinophilic esophagitis. However, given the recurrence of his symptoms in association with his weight gain, I still feel that reflux could be playing a role there as well. As such, I did advise him to begin the omeprazole that he just picked up yesterday. I have recommended a repeat upper endoscopy to reassess the esophagus for any esophageal rings or strictures, as well as for any significant esophagitis. A balloon dilation can be performed at the same time depending upon the findings. I will also obtain biopsies to again inspect for the underlying eosinophilic esophagitis. Based on the findings of the endoscopy and his response to any possible dilation, the biopsy findings, and his response to the PPI, I would then determine whether or not he needs to be treated more specifically for the eosinophilic esophagitis with something such as budesonide. Based on the upper GI report I don't think the tiny Zenker's diverticulum would be playing a role in his current symptoms. The mention of cricopharyngeal achalasia could possibly be playing a role in his symptoms and if necessary a balloon dilation of the upper esophageal sphincter can be done if I feel that is required based on the endoscopy findings. Full consent was obtained for the upper endoscopy with possible dilation, including risks of bleeding and perforation. The procedure will be done with monitored anesthesia care. We did review that he will be due for another screening colonoscopy in 2028 given his negative exam in 2019 and no family history of colon cancer. Roman was comfortable with this plan. Thank you again for allowing me to participate in Roman's care. I shall continue to keep you advised of his progress. 02/22/2024 Pharyngoesophageal dysphagia (ICD-10 - R13.14) Continue daily omeprazole Overall, Roman appears quite well. His current symptoms could certainly be related to the underlying eosinophilic esophagitis. However, given the recurrence of his symptoms in association with his weight gain, I still feel that reflux could be playing a role there as well. As such, I did advise him to begin the omeprazole that he just picked up yesterday. I have recommended a repeat upper endoscopy to reassess the esophagus for any esophageal rings or strictures, as well as for any significant esophagitis. A balloon dilation can be performed at the same time depending upon the findings. I will also obtain biopsies to again inspect for the underlying eosinophilic esophagitis. Based on the findings of the endoscopy and his response to any possible dilation, the biopsy findings, and his response to the PPI, I would then determine whether or not he needs to be treated more specifically for the eosinophilic esophagitis with something such as budesonide. Based on the upper GI report I don't think the tiny Zenker's diverticulum would be playing a role in his current symptoms. The mention of cricopharyngeal achalasia could possibly be playing a role in his symptoms and if necessary a balloon dilation of the upper esophageal sphincter can be done if I feel that is required based on the endoscopy findings. Full consent was obtained for the upper endoscopy with possible dilation, including risks of bleeding and perforation. The procedure will be done with monitored anesthesia care. We did review that he will be due for another screening colonoscopy in 2028 given his negative exam in 2019 and no family history of colon cancer. Roman was comfortable with this plan. Thank [...] the omeprazole then we would continue that group home and perhaps eventually decrease it back to [...] keep you advised of his progress. 06/27/2024 Pharyngoesophageal dysphagia (ICD-10 - R13.14) I [...] the omeprazole then we would continue that group home and perhaps eventually decrease it back to [...] to keep you advised of his progress. 02/10/2024 Pharyngoesophageal dysphagia (ICD-10 - R13.14) 02/24/2024 Dysphagia, pharyngoesophageal phase (ICD-10 - R13.14) 02/22/2024 Eosinophilic esophagitis (ICD-10 - K20.0) Overall, Roman appears quite well. His current symptoms could certainly be related to the underlying eosinophilic esophagitis. However, given the recurrence of his symptoms in association with his weight gain, I still feel that reflux could be playing a role there as well. As such, I did advise him to begin the omeprazole that he just picked up yesterday. I have recommended a repeat upper endoscopy to reassess the esophagus for any esophageal rings or strictures, as well as for any significant esophagitis. A balloon dilation can be performed at the same time depending upon the findings. I will also obtain biopsies to again inspect for the underlying eosinophilic esophagitis. Based on the findings of the endoscopy and his response to any possible dilation, the biopsy findings, and his response to the PPI, I would then determine whether or not he needs to be treated more specifically for the eosinophilic esophagitis with something such as budesonide. Based on the upper GI report I don't think the tiny Zenker's diverticulum would be playing a role in his current symptoms. The mention of cricopharyngeal achalasia could possibly be playing a role in his symptoms and if necessary a balloon dilation of the upper esophageal sphincter can be done if I feel that is required based on the endoscopy findings. Full consent was obtained for the upper endoscopy with possible dilation, including risks of bleeding and perforation. The procedure will be done with monitored anesthesia care. We did review that he will be due for another screening colonoscopy in 2028 given his negative exam in 2019 and no family history of colon cancer. Roman was comfortable with this plan. 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 Plan Of Treatment Pending Test Test Name Order Date XR BARIUM SWALLOW-ESOPHAGUS 04/13/2018 Future Test Test Name Order Date UPPER GI ENDOSCOPY 04/13/2018 COLONOSCOPY 04/13/2018 UPPER GI ENDOSCOPY BALLOOON DILATION OF ESOPH 02/22/2024 Next Appt Details Provider Name:Vitor Wyman Fran , 02/16/2025 01:00:00 PM, [address] [place] [address], [address], [place], [address], Insurance Providers Payer Name Payer Address Payer Phone Subscriber Number Group Number Insured Name Patient Relationship to Insured Coverage Start Date Coverage End Date [facility] [employer] [address] [place] [address] [id number] BHAVANI ARMIJO Self - patient is the insured Medical (General) History Medical History History ICD Code Mitral valve disease by his report--th ey think it caused his 2 strokes Denies [place] ,DM,Lung disease,renal disease CVA x 2--treated with thromb olytics each time with resolution--most recent one was at age 40 Negative screening colonoscopy in 2018 Eosinophilic esophagitis kaitlin gnosed by upper endoscopy and biopsies in May of 2018. He was also noted to have a small hiatal hernia and some very mild reflux esophagitis, but without any Callaway's esophagus nor esophageal stricture. He does have some subtle and nonobstructing proximal esophageal rings. He did have a barium swallow in 2017 describing only a small hiatal hernia, but was otherwise unremarkable. He did not improve on omeprazole. He was given a prescription to start budesonide at the 10/25/2020 office visit. COVID positive 07/2020 Upper endoscopy in February o 2023. Nonobstructing distal esophageal stricture with changes of reflux and small areas of Callaway's esophagus without dysplasia. The esophageal stricture was dilated up to a 20 mm balloon. A small hiatal hernia was noted. Very subtle proximal esophageal rings were also noted biopsies from that area again revealed his eosinophilic esophagitis Callaway's esophagus as above Surgical History Surgery Date(Month/Year) Knee right 2012 Hernia umbilical 2010 Lower Back 2006 Deviated septum Uvuloplasty surgery Knee - left 2018
[2024-10-11 17:56] LABS: D Dimer High Sensitivity 1020 NG/ML
== END 2024-10-11 15:47 | disposition home or self-care (01) ==
LOC: HO.LAB 15:46
PROVIDERS: PCP Internal Medicine; Visit Provider Internal Medicine
DX: J18.9 Pneumonia, unspecified organism (principal); J90 Pleural effusion, not elsewhere classified
CPT/HCPCS: 36415; 71046; 85379

== ENCOUNTER → 2024-10-11 16:35 | Outpatient (BNV) | payer BC, SELFPAY | PROVIDERS: PCP Internal Medicine; Visit Provider Radiology Diagnostic Radiology | DX: J18.1 Lobar pneumonia, unspecified organism (principal); J90 Pleural effusion, not elsewhere classified; J98.11 Atelectasis | CPT/HCPCS: 71046 ==

== ENCOUNTER 2024-10-16 02:03 | Emergency (ER) | payer BC, SELFPAY ==
--- NOTE | ~2024-10-16 | XR_ITS ---
CLINICAL HISTORY: swelling 3 view right foot Comparison: None Findings: No acute fractures or dislocations. No cortical destruction of the bone. Small posterior calcaneal enthesophyte at the site of the Achilles tendon insertion. Tiny plantar calcaneal spur. Possible soft tissue lucency along the plantar surface of the digits on the lateral image. No radiopaque foreign body. IMPRESSION: 1. No acute fracture or dislocation injury identified at the right foot. No radiographic evidence for active osteomyelitis. 2. Possible soft tissue lucency along the plantar surface of the digits of the right foot on the lateral image. An underlying wound or ulcer is not excluded. Clinical correlation is advised. This document has been electronically signed by: Jerry Mckeon MD on 10/16/2024 02:55:49
--- NOTE | ~2024-10-16 | US_ITS ---
CLINICAL HISTORY: pain swelling Venous duplex ultrasound right lower extremity Comparison: None Findings: The visualized deep veins of the right lower extremity are fully compressible with normal Doppler color flow and spectral tracings. The visualized portion of the left common femoral vein also appears patent on color and spectral Doppler imaging. No popliteal cyst. IMPRESSION: 1. Negative for right lower extremity deep vein thrombosis. This document has been electronically signed by: Jerry Mckeon MD on 10/16/2024 04:35:16
[2024-10-16 02:07] VITALS: BP 114/86; PULSE 98; RESP 18; TEMP 36.6; O2SAT 95; BMI 33.6
[2024-10-16 02:51] LABS: Basophils Absolute Auto 0.1 X10*3/uL (0.0-0.2); Basophils Percent Auto 0.9 % (0-2); Eosinophils Absolute Auto 0.5 X10*3/uL (0.0-0.4); Eosinophils Percent Auto 6.2 % (0-4); Hematocrit 39.8 % (42.0-52.0); Hemoglobin 14.3 g/dl (14.0-18.0); Imm Gran Abs Auto 0.04 X10*3/uL (0.00-0.03); Imm Gran Pct Auto 0.5 % (0.0-0.4); Lymphocytes Percent Auto 22.6 % (20-40); MANUAL DIFF FLAG NO; Mean Corpuscular HGB Conc 35.9 g/dl (31.0-36.0); Mean Corpuscular Hemoglobin 31.6 pg (27.0-33.0); Mean Corpuscular Volume 87.9 fL (80.0-98.0); Mean Platelet Volume 8.9 fL (9.4-12.4); Monocytes Absolute Auto 0.7 X10*3/uL (0.1-1.2); Monocytes Percent Auto 8.5 % (2-11); Neutrophils Absolute Auto 5.3 x10*3/uL (2.0-8.3); Neutrophils Percent Auto 61.3 % (45-73); Platelet Count 300 X10*3/uL (160-400); Red Blood Count 4.53 X10*6/uL (4.60-5.80); White Blood Count 8.7 X10*3/uL (4.8-10.8)
[2024-10-16] MEDS: Ketorolac Tromethamine 15 MG/ML VIAL IM (02:55)
[2024-10-16] MEDS: oxyCODONE HCl Immed Release 5 MG TABLET 10 MG PO (02:55)
[2024-10-16 03:12] LABS: Alanine Aminotransferase 32 U/L (0-40); Albumin Level 3.5 g/dL (3.5-5.0); Alkaline Phosphatase 70 U/L (39-117); Anion Gap 12 (12-20); Aspartate Amino Transferase 26 U/L (5-37); Bilirubin Total 0.6 mg/dL (0.0-1.0); Blood Urea Nitrogen 18 mg/dL (9-16); C Reactive Protein 7.65 mg/dL (< or = 0.50); Calcium 8.7 mg/dL (8.4-10.2); Carbon Dioxide 25 mmol/L (22-29); Chloride 106 mmol/L (96-108); Creatinine Clr Calc Pharmacy 86.3; Estimated Glomerular Filt Rate > 60; Glucose Random 130 mg/dL (60-115); Potassium 3.5 mmol/L (3.3-5.1); Sodium 139 mmol/L (135-145); Total Protein 6.9 g/dL (6.5-8.0); Uric Acid 6.4 mg/dL (3.4-7.0)
--- NOTE | 2024-10-16 03:14 | ED_ITS ---
HPI - General Adult General Chief complaint: Extremity Problem Stated complaint: right foot swollen Time Seen by Provider: 10/16/24 02:26 Source: patient Limitations: no limitations History of Present Illness ED Provider: Richa Canela PA-C HPI narrative: 59-year-old male with a history of GERD presents with acute onset right foot pain. Patient developed progressive pain and swelling throughout the day. The lateral aspect of the right foot is most painful. Light touch triggers severe pain. Associated mild erythema. Denies trauma or fever. Denies history of gout. Related Data Home Medications ?Medication ?Instructions ?Recorded ?Confirmed omeprazole 20 mg tablet,delayed 20 mg PO QAM 02/23/24 02/24/24 release Previous Rx's ?Medication ?Instructions ?Recorded ibuprofen 800 mg tablet 800 mg PO TID pain swelling #60 07/29/23 tabs indomethacin 50 mg capsule 50 mg PO Q8H #15 caps 10/16/24 Allergies Allergy/AdvReac Type Severity Reaction Status Date / Time aspirin [Aspirin] Allergy Severe ANAPHYLAXIS Verified 10/16/24 02:11 Review of Systems 2 Review of Systems: Yes all other systems are reviewed and are negative Constitutional: Constitutional: Denies fatigue and Denies fever(s) Musculoskeletal: Musculoskeletal: Reports arthralgias and Reports joint swelling Integumentary/Breasts: Skin/Breast: Reports erythema, Reports skin pain, Reports skin swelling and Denies wounds Endocrine: Endocrine: Denies fatigue PMFSH Past Medical History Attestation statement: The following information was validated with the patient. Medical History Stroke Mitral valve prolapse Social History Social History Are you a primary hospice care sales consultant to a significant other at home: No Do you presently have visiting nurse or other home services: No Patient Tobacco Use Status: Never used Tobacco Advance Directives: No Do you have a plan to hurt others: No Plan Physical Exam ED Vital Signs: Vital Signs - 24 hr 10/16/24 02:07 Temperature 97.9 F Pulse Rate 98 Respiratory Rate 18 Blood Pressure 114/86 Pulse Oximetry 95 Oxygen Delivery Method Room Air BMI result Body Mass Index 33.6 Const Other: Alert overall well-appearing Orientation/consciousness: patient oriented x3 Resp Effort & Inspection: normal respiratory effort Cardio Other: Normal peripheral perfusion Skin Other: Warm dry no rash Neuro General: patient oriented x3, gait normal, no focal motor deficits and CN's II- XI intact bilaterally Extrem Other: Patient able to flex and extend from the right ankle although is limited. There was mild erythema over the dorsum of the right foot most prominent over lateral aspect of the foot. It is warm and exquisitely tender to touch with light palpation. The right calf is subtly larger than the left. Psych Other: Cooperative Medications Administered Discontinued Medications Generic Name Dose Route Start Last Admin Trade Name Betty PRN Reason Stop Dose Admin Ketorolac Tromethamine 15 mg 10/16/24 02:34 10/16/24 02:55 Ketorolac Tromethamine 15 Mg/Ml Vial IM 10/16/24 02:35 15 mg ONCE ONE Administration Oxycodone HCl 10 mg 10/16/24 02:34 10/16/24 02:55 Oxycodone Hcl Immed Release 5 Mg Tablet PO 10/16/24 02:35 10 mg ONCE ONE Administration Medical Decision Making Medical Decision Making [facility] Narrative: 59-year-old male with a history of GERD presents with acute onset right foot pain. Patient developed progressive pain and swelling throughout the day. The lateral aspect of the right foot is most painful. Light touch triggers severe pain. Associated mild erythema. Denies trauma or fever. Denies history of gout. No relevant chronic issues History: Per patient I have considered the following differential diagnoses: Fracture, dislocation, sprain, cellulitis, gout, septic joint, DVT Plan: X-ray ordered from triage, this is not fracture or dislocation there has been no trauma. This could be cellulitis. His exam was not consistent with a septic joint. With the rapid onset of symptoms, I think it is likely gout. We will screen labs including inflammatory markers and uric acid, giving oxycodone and Toradol. The right calf is subtly larger than the left, we will rule out DVT, although the focal pain to the foot is not consistent with DVT. I have independently reviewed the following tests: Labs: No leukocytosis, not anemic, no electrolyte abnormality, uric acid 6.4, C-reactive protein 7.65, ESR X-ray right foot: IMPRESSION: 1. No acute fracture or dislocation injury identified at the right foot. No radiographic evidence for active osteomyelitis. 2. Possible soft tissue lucency along the plantar surface of the digits of the right foot on the lateral image. An underlying wound or ulcer is not excluded. Clinical correlation is advised. Ultrasound right lower extremity: Lab Data 10/16/24 02:46 10/16/24 02:46 Labs: Lab Results 10/16/24 Range/Units 02:46 WBC 8.7 (4.8-10.8) X10*3/uL RBC 4.53 L (4.60-5.80) X10*6/uL Hgb 14.3 (14.0-18.0) g/dl Hct 39.8 L (42.0-52.0) % MCV 87.9 (80.0-98.0) fL MCH 31.6 (27.0-33.0) pg MCHC 35.9 (31.0-36.0) g/dl RDW 12.0 (11.0-16.0) % Plt Count 300 (160-400) X10*3/uL MPV 8.9 L (9.4-12.4) fL Immature Gran % (Auto) 0.5 H (0.0-0.4) % Neut % (Auto) 61.3 (45-73) % Lymph % (Auto) 22.6 (20-40) % [place] % (Auto) 8.5 (2-11) % Eos % (Auto) 6.2 H (0-4) % Baso % (Auto) 0.9 (0-2) % Lymph # (Auto) 2.0 (1.2-4.9) X10*3/uL [place] # (Auto) 0.7 (0.1-1.2) X10*3/uL Eos # (Auto) 0.5 H (0.0-0.4) X10*3/uL Baso # (Auto) 0.1 (0.0-0.2) X10*3/uL Abs Immat Gran (auto) 0.04 H (0.00-0.03) X10*3/uL Absolute Neuts (auto) 5.3 (2.0-8.3) x10*3/uL Absolute Nucleated RBC 0.000 (0.0-0.012) X10*3/uL Nucleated RBC % (auto) 0.0 (0.0-0.2) /100WBC ESR 78 H (0-15) MM/HR Sodium 139 (135-145) mmol/L Potassium 3.5 (3.3-5.1) mmol/L Chloride 106 (96-108) mmol/L Carbon Dioxide 25 (22-29) mmol/L Anion Gap 12 (12-20) BUN 18 H (9-16) mg/dL Creatinine 1.13 (0.5-1.4) mg/dL Estim Creat Clear Calc 86.3 Estimated GFR > 60 Random Glucose 130 H (60-115) mg/dL Uric Acid 6.4 (3.4-7.0) mg/dL Calcium 8.7 (8.4-10.2) mg/dL Magnesium 2.0 (1.6-2.6) mg/dL Total Bilirubin 0.6 (0.0-1.0) mg/dL AST 26 (5-37) U/L ALT 32 (0-40) U/L Alkaline Phosphatase 70 (39-117) U/L C-Reactive Protein 7.65 H (< or = 0.50) mg/dL Total Protein 6.9 (6.5-8.0) g/dL Albumin 3.5 (3.5-5.0) g/dL Discharge Plan Discharge Clinical Impression: Gout Patient Disposition: Home, Self-Care Instructions: Low Purine Diet (ED), Gout (ED), Swollen Ankle Joint (ED) Additional Instructions: The ultrasound of the leg did not reveal a clot. I do believe your symptoms are secondary to gout. See home care instructions. Use the oxycodone that you have at home as needed for pain. To note this medication can be constipating, you should use an sebs-ats-tnuncgl stool softener such as Colace to prevent constipation. Take the indomethacin as directed, this is the anti-inflammatory use to treat gout, take it with food. Follow up with your primary care provider as needed. Prescriptions: New indomethacin 50 mg capsule 50 mg PO Q8H Qty: 15 0RF Rx Instructions: administer with food or milk No Action omeprazole 20 mg tablet,delayed release (DR/EC) 20 mg PO QAM ibuprofen 800 mg tablet 800 mg PO TID Qty: 60 0RF Print Language: [place]
[2024-10-16 03:24] LABS: Erythrocyte Sedimentation Rate 78 MM/HR (0-15)
[2024-10-16 03:57] VITALS: BP 125/73; PULSE 83; RESP 18; TEMP 36.6; O2SAT 95
[2024-10-16 04:02] VITALS: BP 125/73; PULSE 83; RESP 18; TEMP 36.6; O2SAT 95
== END 2024-10-16 04:13 | disposition home or self-care (01) ==
PROVIDERS: Physician Assistant Medical; Emergency Provider Emergency Medicine Emergency Medical Services; PCP Internal Medicine
DX: M10.9 Gout, unspecified (principal); M79.671 Pain in right foot
CPT/HCPCS: 36415; 73630; 80053; 83735; 84550; 85025; 85652; 86140; 93971; 96372; 99284; J1885

== ENCOUNTER → 2024-10-16 02:25 | Outpatient (BNV) | payer BC, SELFPAY | PROVIDERS: PCP Internal Medicine; Visit Provider Radiology Diagnostic Radiology | DX: R22.41 Localized swelling, mass and lump, right lower limb (principal); M79.671 Pain in right foot | CPT/HCPCS: 73630; 93971 ==

== ENCOUNTER → 2025-01-09 13:12 | Outpatient (BNVA) | payer OTHER, SELFPAY | PROVIDERS: PCP Internal Medicine; Visit Provider Physician Assistant Medical | DX: T15.01XA Foreign body in cornea, right eye, initial encounter (principal) | CPT/HCPCS: 92002; 99203 ==

== ENCOUNTER → 2025-01-11 14:15 | Outpatient (BNVA) | payer OTHER, SELFPAY | PROVIDERS: PCP Internal Medicine; Visit Provider Physician Assistant Medical | DX: T15.01XA Foreign body in cornea, right eye, initial encounter (principal); Z02.79 Encounter for issue of other medical certificate | CPT/HCPCS: 99213 ==

== ENCOUNTER → 2025-01-15 12:59 | Outpatient (BNVA) | payer OTHER, SELFPAY | PROVIDERS: PCP Internal Medicine; Visit Provider Physician Assistant Medical | DX: T15.01XA Foreign body in cornea, right eye, initial encounter (principal); Z02.79 Encounter for issue of other medical certificate | CPT/HCPCS: 99213 ==